=== PATIENT | female | born 1960 | race Caucasian/White ===

== ENCOUNTER 2018-01-18 04:40 | Emergency (ER) | payer OTHER ==
[~2018-01-18] VITALS: Ht 189.2 cm; Wt 178.4 kg
[2018-01-18] MEDS ORDERED: SODIUM CHLORIDE 0.9% 1,000 ML IV ONE (04:59)
[2018-01-18] MEDS ORDERED: SODIUM CHLORIDE 0.9% 1,000ML IVBOLUS ONE (05:00)
[2018-01-18] MEDS ORDERED: ASPIRIN 81 MG TABLET CHEW PO ONE (05:00)
[2018-01-18] MEDS ORDERED: SODIUM CHLORIDE FLUSH 10ML SYR IVF ONE (05:00)
[2018-01-18] MEDS ORDERED: DILTIAZEM 5 MG/ML, 5ML IVPush ONE ×2 (05:00→05:30)
[2018-01-18] MEDS ORDERED: DILTIAZEM 5 MG/ML, 5ML ONE ×2 (05:03→05:24)
[2018-01-18] MEDS ORDERED: ASPIRIN 81 MG TABLET CHEW ONE (05:10)
[2018-01-18 05:46] LABS: BASOPHILS # (AUTO) 0.08 x10^3/uL (0-0.1); BASOPHILS % (AUTO) 1 % (0-1); EOSINOPHILS # (AUTO) 0.31 x10^3/uL (0-0.4); EOSINOPHILS % (AUTO) 3 % (1-7); LYMPHOCYTES # (AUTO) 2.91 x10^3/uL (1-3.4); LYMPHOCYTES % (AUTO) 31 % (22-44); MD NO; MEAN CORPUSCULAR HGB CONC 33.9 g/dL (32.4-35.8); MEAN CORPUSCULAR VOLUME 94.5 fL (80-100); MEAN PLATELET VOLUME 8.5 fL (7.4-10.4); MONOCYTES # (AUTO) 0.77 x10^3/uL (0.2-0.8); MONOCYTES % (AUTO) 8 % (2-9); NEUTROPHILS # (AUTO) 5.38 x10^3/uL (1.8-6.8); NEUTROPHILS % (AUTO) 57 % (42-75); PLATELET COUNT 319 x10^3/uL (130-400); RED BLOOD COUNT 5.24 x10^6/uL (3.82-5.3)
[2018-01-18 06:05] LABS: ALANINE AMINOTRANSFERASE 23 U/L (12-78); ALBUMIN 3.5 g/dL (3.4-5.0); ANION GAP 9 mmol/L (5-15); CALCIUM 8.5 mg/dL (8.5-10.1); CHLORIDE 109 mmol/L (98-107)
[2018-01-18 06:09] LABS: ALKALINE PHOSPHATASE 71 U/L (45-117); BILIRUBIN,TOTAL 0.4 mg/dL (0.2-1.0); TOTAL PROTEIN 7.6 g/dL (6.4-8.2); TROPONIN I < 0.015 ng/mL (0.000-0.045)
[2018-01-18] MEDS ORDERED: PROPOFOL 10 MG/ML, 20ML ONE (06:25)
[2018-01-18] MEDS ORDERED: PROPOFOL 10 MG/ML, 20ML IVPush ONE (07:00)
[2018-01-18 08:03] VITALS: BP 132/80
== END 2018-01-18 08:05 | disposition home or self-care (01) ==
LOC: ED 07:30
DX: I48.91 Unspecified atrial fibrillation (principal); I10 Essential (primary) hypertension
CPT/HCPCS: 36415; 71045; 80053; 80307; 83735; 84484; 85025; 92960; 93005; 96361; 96374; 99152; 99153; 99285; J2704; J7030